=== PATIENT | female | born 1985 | race Hispanic/Latino ===

== ENCOUNTER 2017-01-28 08:46 | Outpatient (CLI) | payer BC | END 2017-01-28 08:47 | disposition home or self-care (01) | LOC: BICULT 08:46 | PROVIDERS: ATTEND Internal Medicine | DX: R10.9 Unspecified abdominal pain (principal) | CPT/HCPCS: 76770 ==

== ENCOUNTER 2019-09-10 14:40 | Outpatient (CLI) | payer MEDICAID ==
--- NOTE | 2019-09-10 15:44 | ULT ---
OB ULTRASOUND: HISTORY: anatomy FINDINGS: A single live intrauterine gestation is seen with measurements corresponding to an estimated gestatio nal age of 21 weeks 5 daysand AGUSTIN at 01/16/2020. The estimated weight measures 439 g or 15 ounces (12% by Hadlock criteria). biometry: BPD: 5.15 cm, 21 weeks 5 days HC: 18.92 cm, 21 weeks 2 days AC: 17.29 cm, 22 weeks 2 days FL: 3.49 cm, 21 weeks 1 day heart rate: 138bpm Placenta: Posterior Placenta previa: No SREEKANTH: 16.7cm Cervical length: 6.9cm A three-vessel cord, cord insertion, kidneys, urinary bladder, stomach, 4 chambered heart, late ral ventricles, cerebellum, spine, lips/nose, upper and lower extremities are visualized. No definite anomalies are seen. IMPRESSION: Single live intrauterine gestation of 21 weeks 5 daysestimated gestational age and AGUSTIN at 01/16/2020
== END 2019-09-10 14:41 | disposition home or self-care (01) ==
LOC: BICULT 14:40
PROVIDERS: ATTEND Family Medicine
DX: Z34.82 Encounter for supervision of other normal pregnancy, second trimester (principal); Z3A.21 21 weeks gestation of pregnancy
CPT/HCPCS: 76805

== ENCOUNTER 2020-01-06 21:26 | Inpatient (IN) | payer OTHER ==
[2020-01-06 21:47] VITALS: BMI 30.4
[2020-01-06] MEDS ORDERED: Ondansetron PF 4 MG/2 ML Vial IVP PRN (22:36)
[2020-01-06] MEDS ORDERED: hydrALAZINE 20 MG/ML VIAL SLOW IVP PRN (22:36)
[2020-01-06] MEDS ORDERED: Misoprostol 200 MCG TAB PR PRN (22:36)
[2020-01-06] MEDS ORDERED: Ibuprofen 800 MG TAB PO PRN (22:36)
[2020-01-06] MEDS ORDERED: NS / Oxytocin 40 units/1000ml 1,000 ML IV PRN (22:36)
[2020-01-06] MEDS ORDERED: Promethazine HCl 25 MG/ML VIAL IM PRN (22:36)
[2020-01-06] MEDS ORDERED: Acetaminophen 500 MG TAB PO PRN (22:36)
[2020-01-06] MEDS ORDERED: Butorphanol Tartrate 1 MG/ML VIAL SLOW IVP PRN (22:36)
[2020-01-06] MEDS ORDERED: HYDROcodone/Acetaminophen 5/325 mg Tablet PO PRN ×2 (22:36)
[2020-01-06] MEDS ORDERED: Methylergonovine 0.2 MG/ML VIAL IM PRN (22:36)
[2020-01-06] MEDS ORDERED: Diphenoxylate HCl/Atropine Tablet PO PRN ×2 (22:36)
[2020-01-06] MEDS ORDERED: Carboprost 250 MCG/ML AMP IM PRN (22:36)
[2020-01-06] MEDS ORDERED: Lidocaine 1% (PF) 30 ML VIAL SC PRN (22:36)
[2020-01-06] MEDS ORDERED: Lactated Ringer's 1,000 ML IV SCH (22:45)
[2020-01-06 22:59] LABS: Hemoglobin 13.5 g/dL (12.0-16.0); Mean Corpuscular Hemoglobin 28.4 pg (27.0-31.0); Mean Platelet Volume 9.1 fL (7.4-10.4); Platelet Count 213 thou/uL (130-400); RBC Distribution Width 12.8 % (11.5-14.5); Red Blood Cell (RBC) Count 4.74 mill/uL (4.20-5.40); White Blood Cell (WBC) Count 14.6 thou/uL (4.8-10.8)
[2020-01-06 23:34] LABS: Syphilis Antibody Nonreactive (Nonreactive); Syphilis Antibody Index 0.05 S/CO (<1.00 Non-Reactive)
[2020-01-06 23:37] LABS: HBSAg Index 0.16 S/CO (0-0.99); Hep B Surf Ag Non-Reactive S/CO (NonReactive)
[2020-01-07] MEDS ORDERED: Milk Of Magnesia 30 ML UDCUP PO PRN (03:33)
[2020-01-07] MEDS ORDERED: Bisacodyl 10 MG SUPP PR PRN (03:33)
[2020-01-07] MEDS ORDERED: NS / Oxytocin 40 units/1000ml 1,000 ML IV SCH (03:33)
[2020-01-07] MEDS ORDERED: hydrALAZINE 20 MG/ML VIAL SLOW IVP PRN (03:33)
[2020-01-07] MEDS ORDERED: HYDROcodone/Acetaminophen 5/325 mg Tablet PO PRN ×2 (03:33)
[2020-01-07] MEDS ORDERED: Benzocaine-Menthol 82.5 ML CAN TOP PRN (03:33)
[2020-01-07] MEDS ORDERED: Lanolin Ointment 7 GM TUBE TOP PRN (03:33)
[2020-01-07] MEDS ORDERED: Preparation H Ointment 28 GM TUBE PR PRN (03:33)
[2020-01-07] MEDS ORDERED: Ondansetron PF 4 MG/2 ML Vial IVP PRN (03:33)
[2020-01-07] MEDS ORDERED: Promethazine HCl 25 MG/ML VIAL IM PRN (03:33)
[2020-01-07] MEDS: Ibuprofen 800 MG TAB PO SCH ×3 (04:54→22:54)
[2020-01-07 05:34] LABS: SARS-CoV-2 MS2 Positive; SARS-CoV-2 N Gene Negative; SARS-CoV-2 S Gene Negative; SARS-CoV-2 by NAA Not Detected (NotDetected); SARS-CoV-2 orf1ab Negative
[2020-01-07] MEDS ORDERED: Adacel (T-DAP) 0.5 ML SYRINGE IM ONE (09:00)
[2020-01-07] MEDS: Docusate Calcium (SURFAK) 240 MG CAP PO SCH ×2 (11:20→22:54)
[2020-01-08] MEDS: Ibuprofen 800 MG TAB PO SCH (06:54)
[2020-01-08] MEDS: Docusate Calcium (SURFAK) 240 MG CAP PO SCH (08:55)
[2020-01-08 09:43] VITALS: BP 115/68; TEMP 98.8
== END 2020-01-08 10:15 | disposition home or self-care (01) | DRG 807 ==
LOC: L&D/OP 21:26 → L&D 22:36 → 3SW 01-07 03:59
PROVIDERS: ADMIT Family Medicine; ATTEND Family Medicine
PROC: 10907ZC Drainage of Amniotic Fluid, Therapeutic from Products of Conception, Via Natural or Artificial Opening (ICD-10-PCS; 2020-01-06)
PROC: 10E0XZZ Delivery of Products of Conception, External Approach (ICD-10-PCS; principal; 2020-01-07)
DX: O69.81X0 Labor and delivery complicated by cord around neck, without compression, not applicable or unspecified (principal); Z37.0 Single live birth; Z3A.39 39 weeks gestation of pregnancy; Z20.828 Contact with and (suspected) exposure to other viral communicable diseases
CPT/HCPCS: 36415; 85027; 86780; 86850; 86900; 86901; 87340; 87635; 99285; U0003